=== PATIENT | female | born 2000 | race Two or more races ===

== ENCOUNTER → 2023-11-15 | Outpatient (REF) | payer OTHER | LOC: M PLALAB 10:33 | PROVIDERS: ATTEND Advanced Practice Midwife | DX: Z53.9 Procedure and treatment not carried out, unspecified reason (principal) ==

== ENCOUNTER → 2023-11-15 | Outpatient (CLI) | payer OTHER ==
[2023-11-15 15:00] LABS: HEMOGLOBIN 12.2 g/dl (12.0-15.5); MEAN CORPUSCULAR HEMOGLOBIN 30.1 pg (27.0-33.0); MEAN CORPUSCULAR VOLUME 91.4 fl (80.0-96.0); PLATELET COUNT, AUTOMATED 266 10^3/uL (150-450); RED BLOOD COUNT 4.05 10^6/uL (4.00-5.40); WHITE BLOOD COUNT 9.9 10^3/uL (4.0-10.0)
[2023-11-15 16:01] LABS: HIV 1&2 SCREEN NEGATIVE (NEGATIVE)
[2023-11-15 16:09] LABS: HEPATITIS C VIRUS ABY INDEX 0.09 INDEX (<0.8)
== END ==
LOC: M PLALAB 10:48
PROVIDERS: ATTEND Advanced Practice Midwife
DX: Z34.81 Encounter for supervision of other normal pregnancy, first trimester (principal)

== ENCOUNTER → 2023-12-13 | Outpatient (REF) | payer OTHER ==
[2023-12-13 11:15] LABS: GC DNA AMPLIFICATION NEGATIVE (NEGATIVE)
== END ==
LOC: M SFHCWAGY 09:39
PROVIDERS: ATTEND Advanced Practice Midwife
DX: Z34.81 Encounter for supervision of other normal pregnancy, first trimester (principal)

== ENCOUNTER → 2024-01-09 | Outpatient (CLI) | payer OTHER | LOC: M WHC 10:11 | PROVIDERS: ATTEND Advanced Practice Midwife | DX: O09.892 Supervision of other high risk pregnancies, second trimester (principal); Z3A.19 19 weeks gestation of pregnancy ==

== ENCOUNTER 2024-01-17 09:53 | Outpatient (CLI) | payer OTHER ==
[~2024-01-17] VITALS: Ht 149.9 cm; Wt 61.2 kg
[2024-01-17 10:14] VITALS: BP 106/57; O2SAT 100
[2024-01-17] MEDS ORDERED: HOME MED LIST COMPLETE! XX SCH (10:30)
[2024-01-17] MEDS: DOCUSATE SODIUM 100MG CAPSULE PO ONE (10:59)
[2024-01-17] MEDS: SIMETHICONE 80MG CHEW TAB PO ONE (10:59)
[2024-01-17 11:19] VITALS: BP 108/64
== END 2024-01-17 11:28 | disposition home or self-care (01) ==
LOC: M LDO 09:53
PROVIDERS: ATTEND Obstetrics & Gynecology
DX: O99.612 Diseases of the digestive system complicating pregnancy, second trimester (principal); K59.00 Constipation, unspecified; Z3A.20 20 weeks gestation of pregnancy; O99.282 Endocrine, nutritional and metabolic diseases complicating pregnancy, second trimester; E86.0 Dehydration
CPT/HCPCS: 59025; 81001; G0463

== ENCOUNTER → 2024-03-31 | Outpatient (CLI) | payer OTHER ==
[2024-03-31 14:25] LABS: HEMATOCRIT 26.4 % (36.0-47.0); HEMOGLOBIN 8.5 g/dl (12.0-15.5); MEAN CORPUSCULAR HEMOGLOBIN 28.9 pg (27.0-33.0); MEAN CORPUSCULAR HGB CONC 32.2 g/dl (32.0-36.5); MEAN CORPUSCULAR VOLUME 89.8 fl (80.0-96.0); PLATELET COUNT, AUTOMATED 239 10^3/uL (150-450); RED BLOOD COUNT 2.94 10^6/uL (4.00-5.40); WHITE BLOOD COUNT 6.4 10^3/uL (4.0-10.0)
[2024-03-31 14:27] LABS: GLUCOSE CHALLENGE TEST 1 HOUR 71 MG/DL (LESS THAN 140)
[2024-03-31 14:54] LABS: GC DNA AMPLIFICATION NEGATIVE (NEGATIVE)
[2024-03-31 14:56] LABS: HIV 1&2 SCREEN NEGATIVE (NEGATIVE)
[2024-03-31 15:05] LABS: HEPATITIS C VIRUS ABY INDEX 0.03 INDEX (<0.8)
== END ==
LOC: M PLALAB 09:32
PROVIDERS: ATTEND Obstetrics & Gynecology
DX: O09.33 Supervision of pregnancy with insufficient antenatal care, third trimester (principal); Z3A.31 31 weeks gestation of pregnancy

== ENCOUNTER 2024-04-07 09:50 | Outpatient (CLI) | payer OTHER ==
[~2024-04-07] VITALS: Ht 149.9 cm; Wt 64.0 kg
[~2024-04-07 09:50] MED LIST: ALBUTEROL SULFATE 2.5MG/0.5ML INH NEB SOLN INH PRN; EPINEPHrine INJ 1 MG/ML 1ML AMP IM PRN; diphenhydrAMINE 50MG/ML VIAL IV PRN; methylPREDNISolone 125MG 2ML VIAL IV PRN
[2024-04-07] MEDS: FERRIC CARBOXYMALTOSE 750 MG (VIAL MATE) IN 100ML NS IV ONE (10:16)
[2024-04-07 10:19] VITALS: BP 126/71; O2SAT 100
[2024-04-07 11:04] VITALS: BP 115/62; O2SAT 99
== END 2024-04-07 11:06 ==
LOC: M INFU 09:50
PROVIDERS: ATTEND Obstetrics & Gynecology
DX: O26.891 Other specified pregnancy related conditions, first trimester (principal); O99.019 Anemia complicating pregnancy, unspecified trimester; D46.9 Myelodysplastic syndrome, unspecified
CPT/HCPCS: 96365; J1439

== ENCOUNTER 2024-04-14 09:15 | Outpatient (CLI) | payer OTHER ==
[~2024-04-14] VITALS: Ht 149.9 cm; Wt 65.0 kg
[2024-04-14] MEDS: FERRIC CARBOXYMALTOSE 750 MG (VIAL MATE) IN 100ML NS IV ONE (09:24)
[2024-04-14 09:30] VITALS: BP 110/72; O2SAT 98
[2024-04-14] MEDS ORDERED: NS 1,000 ML IV SCH (09:30)
[2024-04-14 09:50] VITALS: BP 118/70; O2SAT 96
== END 2024-04-14 09:52 ==
LOC: M INFU 09:15
PROVIDERS: ATTEND Obstetrics & Gynecology
DX: D46.9 Myelodysplastic syndrome, unspecified (principal)
CPT/HCPCS: 96365; J1439

== ENCOUNTER → 2024-05-02 | Outpatient (REF) | payer OTHER | LOC: M PLALAB 14:54 | PROVIDERS: ATTEND Nurse Practitioner Family | DX: Z36.85 Encounter for antenatal screening for Streptococcus B (principal); Z3A.36 36 weeks gestation of pregnancy ==

== ENCOUNTER → 2024-05-05 | Outpatient (CLI) | payer OTHER ==
[2024-05-05 14:35] LABS: HEMOGLOBIN 10.8 g/dl (12.0-15.5); MEAN CORPUSCULAR HEMOGLOBIN 30.3 pg (27.0-33.0); MEAN CORPUSCULAR HGB CONC 32.7 g/dl (32.0-36.5); MEAN CORPUSCULAR VOLUME 92.7 fl (80.0-96.0); PLATELET COUNT, AUTOMATED 181 10^3/uL (150-450); RED BLOOD COUNT 3.56 10^6/uL (4.00-5.40); WHITE BLOOD COUNT 6.3 10^3/uL (4.0-10.0)
== END ==
LOC: M PLALAB 10:33
PROVIDERS: ATTEND Obstetrics & Gynecology
DX: O99.019 Anemia complicating pregnancy, unspecified trimester (principal)

== ENCOUNTER 2024-06-05 22:55 | Inpatient (IN) | payer OTHER ==
[~2024-06-05] VITALS: Ht 149.9 cm; Wt 69.6 kg
[2024-06-05 23:08] VITALS: BP 116/75
[2024-06-05] MEDS ORDERED: HOME MED LIST COMPLETE! XX SCH (23:10)
[2024-06-06] VITALS (27 sets, daily range): BP systolic 101–137; BP diastolic 55–84; O2SAT 97–98
[2024-06-06] MEDS ORDERED: LIDOCAINE 1% MDV 20ML VIAL INFIL PRN (00:25)
[2024-06-06] MEDS ORDERED: CARBOPROST TROMETHAMINE 250 MCG/ML AMP IM PRN (00:25)
[2024-06-06] MEDS ORDERED: TRANEXAMIC ACID INJection 1,000 MG in NS 100 ML IV PRN (00:25)
[2024-06-06] MEDS ORDERED: METHYLERGONOVINE MALEATE 0.2MG/ML 1ML VIAL IM PRN (00:25)
[2024-06-06 01:00] LABS: HEMATOCRIT 34.9 % (36.0-47.0); HEMOGLOBIN 11.8 g/dl (12.0-15.5); MEAN CORPUSCULAR HEMOGLOBIN 29.7 pg (27.0-33.0); MEAN CORPUSCULAR HGB CONC 33.8 g/dl (32.0-36.5); MEAN CORPUSCULAR VOLUME 87.9 fl (80.0-96.0); PLATELET COUNT, AUTOMATED 207 10^3/uL (150-450); RED BLOOD COUNT 3.97 10^6/uL (4.00-5.40); WHITE BLOOD COUNT 8.6 10^3/uL (4.0-10.0)
[2024-06-06] MEDS: LACTATED RINGER'S 1000 ML IV STA (01:00)
[2024-06-06] MEDS ORDERED: ePHEDrine SULFATE 25 MG/5 ML(5MG/ML) SYRINGE IVP PRN (01:45)
[2024-06-06] MEDS ORDERED: NALOXONE INJ 0.4MG/1ML VIAL IV PRN (01:45)
[2024-06-06] MEDS ORDERED: diphenhydrAMINE 50MG/ML VIAL IV PRN (01:45)
[2024-06-06] MEDS ORDERED: LR 500 ML IV PRN (01:45)
[2024-06-06] MEDS ORDERED: EPIDURAL/PCA KEYS XX PRN (01:45)
[2024-06-06] MEDS: FENTANYL/ROPIVACAINE/NACL BAG 100 ML EPIDURAL SCH (01:51)
[2024-06-06] MEDS: LR 1,000 ML IV SCH (01:51)
[2024-06-06 02:03] LABS: HEPATITIS C VIRUS ABY INDEX 0.02 INDEX (<0.8)
[2024-06-06] MEDS: ONDANSETRON 4MG 2ML VIAL IV PRN (03:38)
[2024-06-06] MEDS: OXYTOCIN DRIP 30 UNITS in IV 1 EA IV PRN (04:43)
[2024-06-06] MEDS ORDERED: METHYLERGONOVINE MALEATE 0.2 MG TAB PO PRN (04:55)
[2024-06-06] MEDS ORDERED: ONDANSETRON 4MG 2ML VIAL IV PRN (04:55)
[2024-06-06] MEDS ORDERED: DIBUCAINE 1% OINTMENT 30GM TOP PRN (04:55)
[2024-06-06] MEDS ORDERED: LR 1,000 ML IV SCH (04:55)
[2024-06-06] MEDS ORDERED: CALCIUM CARBONATE 500 MG CHEW U/D PO PRN (04:55)
[2024-06-06] MEDS: OXYTOCIN DRIP 30 UNITS in IV 1 EA IV SCH (04:55)
[2024-06-06] MEDS ORDERED: RHOGAM 300MCG (1500IU) INJ IM SCH (04:55)
[2024-06-06] MEDS ORDERED: IBUPROFEN 600MG TAB PO PRN (04:55)
[2024-06-06] MEDS ORDERED: ANUSOL HC CREAM 30GM TOP PRN (04:55)
[2024-06-06] MEDS ORDERED: IBUPROFEN 800 MG TAB PO PRN (04:55)
[2024-06-06] MEDS ORDERED: ACETAMINOPHEN 325 MG TAB PO PRN (04:55)
[2024-06-06] MEDS: DOCUSATE SODIUM 100MG CAPSULE PO SCH (08:08)
[2024-06-06] MEDS: PRENATAL VITAMINS CHEWABLE TABLET PO SCH (08:08)
[2024-06-06] MEDS: diphenhydrAMINE 50MG/ML VIAL IV PRN (08:09)
[2024-06-06] MEDS: ACETAMINOPHEN 500 MG TAB PO PRN (20:41)
[2024-06-07 06:00] VITALS: BP 96/60; O2SAT 99
[2024-06-07] MEDS: MOM 30ML SUSPENSION UDC PO PRN (10:09)
[2024-06-08] MEDS ORDERED: MEASLES,MUMPS,RUBELLA VACCINE INJ (MMR-II) SC.IMMUN ONE (09:00)
== END 2024-06-07 14:55 | disposition home or self-care (01) | DRG 807 ==
LOC: M LDO 22:55 → M LDI 06-06 00:17 → M OBS 06-06 06:55
PROVIDERS: ADMIT Obstetrics & Gynecology; ATTEND Obstetrics & Gynecology
PROC: 10E0XZZ Delivery of Products of Conception, External Approach (ICD-10-PCS; principal; 2024-06-06)
DX: O48.0 Post-term pregnancy (principal); Z37.0 Single live birth; Z3A.41 41 weeks gestation of pregnancy

== ENCOUNTER 2024-06-24 23:22 | Emergency (ER) | payer OTHER ==
[~2024-06-24] VITALS: Ht 152.4 cm; Wt 61.8 kg
[2024-06-25 00:12] LABS: BASO % 0.4 % (0.0-1.0); EOS # 0.3 10^3/uL (0.0-0.5); EOS % 6.8 % (0.0-3.0); HEMATOCRIT 43.7 % (36.0-47.0); HEMOGLOBIN 14.7 g/dl (12.0-15.5); LYMPH % 41.2 % (24.0-44.0); MEAN CORPUSCULAR HEMOGLOBIN 29.8 pg (27.0-33.0); MEAN CORPUSCULAR HGB CONC 33.6 g/dl (32.0-36.5); MEAN CORPUSCULAR VOLUME 88.5 fl (80.0-96.0); MONO # 0.3 10^3/uL (0.0-0.8); MONO % 6.3 % (2.0-8.0); NEUTROPHILS # 2.1 10^3/uL (1.5-8.5); NEUTROPHILS % 44.9 % (36.0-66.0); PLATELET COUNT, AUTOMATED 206 10^3/uL (150-450); RED BLOOD COUNT 4.94 10^6/uL (4.00-5.40); WHITE BLOOD COUNT 4.7 10^3/uL (4.0-10.0)
[2024-06-25 00:29] LABS: LIPASE 32 U/L (12-53)
[2024-06-25 00:32] LABS: ALBUMIN 3.5 G/DL (3.2-5.2); ALKALINE PHOSPHATASE 115 U/L (35-104); ALT/SGPT 18 U/L (7.0-40); AST/SGOT 23 U/L (<34); BILIRUBIN,DIRECT < 0.1 MG/DL (<0.4); BILIRUBIN,TOTAL 0.3 MG/DL (0.3-1.2); BLOOD UREA NITROGEN 14 MG/DL (9-23); CALCIUM LEVEL 8.6 MG/DL (8.5-10.1); CARBON DIOXIDE LEVEL 26 MMOL/L (20-31); CHLORIDE LEVEL 107 MMOL/L (98-107); CK-MB VALUE MASS < 1.0 NG/ML (<3.6); CPK CREATINE PHOSPHOKINASE 51 U/L (34-145); CREATININE FOR GFR 0.68 MG/DL (0.55-1.30); GLOMERULAR FILTRATION RATE > 60.0 (>60); GLUCOSE, FASTING 92 MG/DL (60-100); MB/CK RELATIVE INDEX 1.96 (< OR =4); POTASSIUM SERUM 3.8 MMOL/L (3.5-5.1); SODIUM LEVEL 141 MMOL/L (136-145); TOTAL PROTEIN 7.4 G/DL (5.7-8.2)
[2024-06-25 01:09] LABS: D-DIMER QUANT 0.32 ug/mL (<0.5); INR 0.98; PROTHROMBIN TIME 13.3 SECONDS (12.5-14.5)
[2024-06-25] MEDS: ACETAMINOPHEN 500 MG TAB PO ONE (04:29)
[2024-06-25] MEDS: ALBUTEROL 90 MCG/ACT 8GM HFA INHALER INH ONE (05:16)
[2024-06-25 05:20] VITALS: BP 126/71; TEMP 97.5; O2SAT 97
== END 2024-06-25 05:20 | disposition home or self-care (01) ==
LOC: M ED 23:22
DX: U07.1 COVID-19 (principal); J45.909 Unspecified asthma, uncomplicated; F41.0 Panic disorder [episodic paroxysmal anxiety]; F17.290 Nicotine dependence, other tobacco product, uncomplicated; Z91.018 Allergy to other foods